=== PATIENT | female | born 1985 ===

== ENCOUNTER 2020-05-31 12:15 | Inpatient (IN) | payer OTHER ==
[~2020-05-31] VITALS: Ht 149.9 cm; Wt 59.0 kg
[2020-06-05] MEDS ORDERED: FOLIC ACID20 MG PO (14:32)
[2020-06-05] MEDS ORDERED: PRENATAL TABLE1 EAC3 PO (14:32)
== END 2020-06-08 13:50 | disposition home or self-care (01) | DRG 788 ==
LOC: OB/GYN 06-05 10:54 → LDR 06-05 10:54 → OB/GYN 06-05 12:15 → SURH 06-05 12:15 → OB/GYN 06-05 12:45
PROVIDERS: ADMIT Obstetrics & Gynecology; ATTEND Obstetrics & Gynecology
PROC: 4A0HXFZ Measurement of Products of Conception, Cardiac Rhythm, External Approach (ICD-10-PCS; 2020-06-05)
PROC: 10D00Z1 Extraction of Products of Conception, Low, Open Approach (ICD-10-PCS; principal; 2020-06-05 12:45)
DX: O34.211 Maternal care for low transverse scar from previous cesarean delivery (principal); Z3A.39 39 weeks gestation of pregnancy; Z37.0 Single live birth